=== PATIENT | female | born 1980 | race Caucasian/White ===

== ENCOUNTER 2020-11-14 13:34 | Emergency (ER) | payer OTHER | END 2020-11-14 16:40 | disposition home or self-care (01) | LOC: ER 13:34 | DX: K52.9 Noninfective gastroenteritis and colitis, unspecified (principal); F17.200 Nicotine dependence, unspecified, uncomplicated; Z91.030 Bee allergy status ==

== ENCOUNTER 2022-01-27 08:31 | Emergency (ER) | payer OTHER ==
[~2022-01-27] VITALS: Ht 175.3 cm; Wt 67.6 kg
[~2022-01-27 08:31] MED LIST: ALBU90OI INH; Ciprodex Otic7.5 ML LEFTEAR; IBUP800 PO; ONDA4ODT MM
[2022-01-27] MEDS ORDERED: Norco 5-325 Ta1 EACH PO (10:46)
== END 2022-01-27 11:02 | disposition home or self-care (01) ==
LOC: ER 08:31
DX: S52.501A Unspecified fracture of the lower end of right radius, initial encounter for closed fracture (principal); J45.909 Unspecified asthma, uncomplicated; F17.200 Nicotine dependence, unspecified, uncomplicated; Z91.030 Bee allergy status; W19.XXXA Unspecified fall, initial encounter
CPT/HCPCS: 29125; 73110; 99283-25; A9270

== ENCOUNTER 2024-02-22 15:48 | Emergency (ER) | payer OTHER ==
[~2024-02-22] VITALS: Ht 175.3 cm; Wt 67.6 kg
[~2024-02-22 15:48] MED LIST changes: +NEOPOLHCSU RIGHTEAR; +Norco 5-325 Ta1 EACH PO
[2024-02-22 16:03] VITALS: BP 137/107
[2024-02-22 17:05] LABS: Influenza A, PCR NEGATIVE (NEGATIVE); Influenza B, PCR NEGATIVE (NEGATIVE); Resp Syncytial Virus, PCR NEGATIVE (NEGATIVE); SARS-Cov-2 (COVID-19) PCR, MMC NEGATIVE (NEGATIVE)
[2024-02-22 17:13] LABS: BASOPHILS ABSOLUTE AUTO 0.04 K/mm3 (0.00-0.23); BASOPHILS PERCENT AUTO 0 % (0-2); EOSINOPHILS ABSOLUTE AUTO 0.06 K/mm3 (0.00-0.68); EOSINOPHILS PERCENT AUTO 1 % (0-6); Hemoglobin 15.1 g/dL (11.5-16.0); IMMATURE GRAN ABSOLUTE AUTO 0.04 K/mm3 (0.00-0.10); IMMATURE GRAN PERCENT AUTO 0 % (0-1); LYMPHOCYTES ABSOLUTE AUTO 4.53 K/mm3 (0.84-5.20); LYMPHOCYTES PERCENT AUTO 40 % (21-46); MONOCYTES ABSOLUTE AUTO 0.54 K/mm3 (0.16-1.47); MONOCYTES PERCENT AUTO 5 % (4-13); Mean Corpuscular HGB 32.3 pg (26.0-34.0); Mean Corpuscular HGB Conc 34.3 g/dL (31.5-36.5); Mean Corpuscular Volume 94 fL (80-100); Mean Platelet Volume 10.1 fL (9.1-12.4); NEUTROPHILS ABSOLUTE AUTO 6.21 K/mm3 (1.96-9.15); NEUTROPHILS PERCENT AUTO 54 % (41-73); Platelet Count 365 K/mm3 (150-400); RDW Coefficient Variation 13.1 % (11.7-14.2); RDW Standard Deviation 44.9 fL (35.1-46.3); Red Blood Cell Count 4.68 M/mm3 (3.80-5.20); White Blood Cell Count 11.42 K/mm3 (4.00-11.30)
[2024-02-22 17:24] LABS: Albumin, Blood 3.5 g/dL (3.4-5.0); Albumin/Globulin Ratio 1.1 (0.8-1.8); Bilirubin, Total 0.2 mg/dL (0.1-1.0); Bun/Creatinine Ratio 15.5 (12.0-20.0); Calcium, Blood 8.5 mg/dL (8.5-10.1); Creatinine, Blood 0.78 mg/dL (0.40-1.00); Globulin, Blood 3.2 g/dL (2.2-4.0); Potassium, Blood 3.5 mmol/L (3.5-5.5); Total Protein, Blood 6.7 g/dL (6.4-8.2)
[2024-02-22] MEDS ORDERED: PredniSONE 20 MG Tab PO ONE (19:40)
[2024-02-22] MEDS ORDERED: BUDESONIDE-FO10.2 G3 INH (19:44)
== END 2024-02-22 19:49 | disposition home or self-care (01) ==
LOC: ER 15:48
PROVIDERS: Emergency Medicine
DX: J44.1 Chronic obstructive pulmonary disease with (acute) exacerbation (principal); J40 Bronchitis, not specified as acute or chronic; Z91.038 Other insect allergy status; Z91.030 Bee allergy status; Z79.899 Other long term (current) drug therapy; Z59.89 Other problems related to housing and economic circumstances
CPT/HCPCS: 0241U; 71046; 80053; 84484; 85025; 93005; 93010; 99285-25; J7512

== ENCOUNTER 2024-04-09 19:00 | Emergency (ER) | payer OTHER ==
[~2024-04-09] VITALS: Ht 175.3 cm; Wt 65.8 kg
[~2024-04-09 19:00] MED LIST changes: +BUDESONIDE-FO10.2 G3 INH
[2024-04-09 20:42] VITALS: BP 107/86
== END 2024-04-09 20:42 | disposition home or self-care (01) ==
LOC: ER 19:00
DX: S63.501A Unspecified sprain of right wrist, initial encounter (principal); S63.91XA Sprain of unspecified part of right wrist and hand, initial encounter; V49.50XA Passenger injured in collision with unspecified motor vehicles in traffic accident, initial encounter; J45.909 Unspecified asthma, uncomplicated; Z91.030 Bee allergy status; F17.200 Nicotine dependence, unspecified, uncomplicated; Z79.899 Other long term (current) drug therapy
CPT/HCPCS: 29125; 73110; 73130; 99284-25

== ENCOUNTER 2024-08-08 09:41 | Day surgery (SDC) | payer OTHER ==
[~2024-08-08] VITALS: Ht 175.3 cm; Wt 68.2 kg
[~2024-08-08 09:41] MED LIST changes: +Lactated Ringer's 1,000 ML IV ONE; +Lidocaine HCl 2% 10 ML SDA ONE
[2024-08-08] MEDS ORDERED: propofoL 20 ML IV ONE (10:12)
[2024-08-08] MEDS ORDERED: NS 500 ML IV ONE (10:22)
[2024-08-08] MEDS ORDERED: Dexamethasone Sod Phos 10 MG/ML 1ML VIAL ONE (10:47)
[2024-08-08] MEDS ORDERED: Ondansetron HCl 2 MG / ML 2ML Vial ONE (10:47)
[2024-08-08] MEDS ORDERED: Midazolam HCl 1MG / ML 2ML Vial ONE (10:48)
[2024-08-08] MEDS ORDERED: FentaNYL Citrate 50 MCG/ML 2 ML Injection ONE ×2 (10:50→12:09)
[2024-08-08] MEDS ORDERED: CeFAZolin Sodium 2,000 MG VIAL ONE (11:03)
[2024-08-08] MEDS ORDERED: Lactated Ringer's 1,000 ML IV ONE (11:31)
--- NOTE | 2024-08-08 12:14 | NUR ---
08/08/24 1214 Morenita De Leon PT MOVED TO STEPDOWN ROOM, PATIENT DROWSY. REPORTS PAIN 12/04. PATIENT SITTING UP IN BED, TELLING STORIES AND LAUGHING. ICE PACK APPLIED, WARM BLANKETS APPLIED AND ARM ELEVATED ON PILLOW.
[2024-08-08 12:25] VITALS: BP 124/95
[2024-08-08] MEDS ORDERED: HYDROcodone 5-APAP 325 TAB ONE (12:40)
== END 2024-08-08 12:59 | disposition home or self-care (01) ==
LOC: ORSCSDS 09:41
PROVIDERS: Orthopaedic Surgery
PROC: 0RQN0ZZ Repair Right Wrist Joint, Open Approach (ICD-10-PCS; principal; 2024-08-08 10:45)
DX: S63.641A Sprain of metacarpophalangeal joint of right thumb, initial encounter (principal); J45.909 Unspecified asthma, uncomplicated; F17.210 Nicotine dependence, cigarettes, uncomplicated; Z79.899 Other long term (current) drug therapy
CPT/HCPCS: A9270; C1713; J0690; J1100; J2003; J2250; J2405; J2704; J3010; J7040; J7120

== ENCOUNTER 2025-03-28 10:26 | Emergency (ER) | payer OTHER ==
[~2025-03-28] VITALS: Ht 170.2 cm; Wt 68.0 kg
[~2025-03-28 10:26] MED LIST changes: -Lactated Ringer's 1,000 ML IV ONE; -Lidocaine HCl 2% 10 ML SDA ONE
[2025-03-28 10:44] VITALS: BP 155/99
[2025-03-28 11:15] LABS: BASOPHILS ABSOLUTE AUTO 0.08 K/mm3 (0.00-0.23); BASOPHILS PERCENT AUTO 1 % (0-2); EOSINOPHILS ABSOLUTE AUTO 0.01 K/mm3 (0.00-0.68); EOSINOPHILS PERCENT AUTO 0 % (0-6); Hematocrit 47.5 % (33.0-51.0); Hemoglobin 16.5 g/dL (11.5-16.0); IMMATURE GRAN ABSOLUTE AUTO 0.05 K/mm3 (0.00-0.10); IMMATURE GRAN PERCENT AUTO 0 % (0-1); LYMPHOCYTES ABSOLUTE AUTO 1.96 K/mm3 (0.84-5.20); LYMPHOCYTES PERCENT AUTO 13 % (21-46); MONOCYTES ABSOLUTE AUTO 0.53 K/mm3 (0.16-1.47); MONOCYTES PERCENT AUTO 4 % (4-13); Mean Corpuscular HGB Conc 34.7 g/dL (31.5-36.5); Mean Corpuscular Volume 92 fL (80-100); NEUTROPHILS ABSOLUTE AUTO 12.31 K/mm3 (1.96-9.15); NEUTROPHILS PERCENT AUTO 83 % (41-73); NRBC ABSOLUTE 0.00 K/mm3 (0.00-0.02); NRBC Auto 0.0 /100 WBC (0.0-0.2); Platelet Count 354 K/mm3 (150-400); RDW Coefficient Variation 13.1 % (11.7-14.2); RDW Standard Deviation 44.5 fL (35.1-46.3)
[2025-03-28 11:46] LABS: Alanine Aminotransfer (ALT/SGP 37.0 U/L (12-78); Albumin, Blood 4.6 g/dL (3.4-5.0); Albumin/Globulin Ratio 1.1 (0.8-1.8); Anion Gap 9.0 mmol/L (3-11); Aspartate Aminotrans (AST/SGOT 35.0 U/L (12-37); Bilirubin, Total 0.9 mg/dL (0.1-1.0); Blood Urea Nitrogen 9.0 mg/dL (8-24); CO2, Blood 23.0 mmol/L (21-32); Calcium, Blood 9.2 mg/dL (8.5-10.1); Chloride, Blood 106.0 mmol/L (98-108); Creatinine, Blood 0.57 mg/dL (0.40-1.00); Globulin, Blood 4.1 g/dL (2.2-4.0); Glucose, Blood 108.0 mg/dL (70-99); Potassium, Blood 4.4 mmol/L (3.5-5.5); Sodium, Blood 134.0 mmol/L (136-145); Total Protein, Blood 8.7 g/dL (6.4-8.2)
[2025-03-28] MEDS ORDERED: LIDO700A20 TOP (13:36)
[2025-03-28] MEDS ORDERED: IBUP600 PO (13:36)
== END 2025-03-28 13:44 | disposition home or self-care (01) ==
LOC: ER 10:26
PROVIDERS: Emergency Medicine
DX: S22.41XA Multiple fractures of ribs, right side, initial encounter for closed fracture (principal); S00.10XA Contusion of unspecified eyelid and periocular area, initial encounter; R51.9 Headache, unspecified; Y04.8XXA Assault by other bodily force, initial encounter; Z91.030 Bee allergy status; Z79.899 Other long term (current) drug therapy; J45.909 Unspecified asthma, uncomplicated; F17.200 Nicotine dependence, unspecified, uncomplicated
CPT/HCPCS: 71045; 74177; 80053; 85025; 99284-25; Q9967